=== PATIENT | female | born 1960 | race Two or more races ===

== ENCOUNTER 2019-03-29 11:56 | Emergency (ER) | payer OTHER ==
[~2019-03-29] VITALS: Ht 162.6 cm; Wt 69.9 kg
--- NOTE | 2019-03-29 12:08 | NUR ---
PT CAME IN FOR COUGH AND CONGESTION SINCE THANKSGIVING. NO RELIEF W/ MEDS. PT AAOX4, VSS, -SOB, NO ACUTE DISTRESS NOTED. PT CONNECTED TO THE MONITOR AND POX.
--- NOTE | 2019-03-29 12:48 | NUR ---
XRAY AT BEDSIDE
--- NOTE | 2019-03-29 13:40 | NUR ---
Patient discharged to home in stable condition. Written and verbal after care instructions given. Patient verbalizes understanding of instruction.
--- NOTE | 2019-03-29 14:02 | NUR ---
UNABLE TO DEPART
[2019-03-29 14:30] VITALS: BP 127/84
== END 2019-03-29 14:30 | disposition home or self-care (01) ==
LOC: ER 12:06
DX: J20.9 Acute bronchitis, unspecified (principal)
CPT/HCPCS: 71045-TC

== ENCOUNTER 2019-05-06 14:42 | Emergency (ER) | payer OTHER ==
[~2019-05-06] VITALS: Ht 162.6 cm; Wt 70.3 kg
--- NOTE | 2019-05-06 15:00 | NUR ---
c/o left rib pain since yesterday 12/09 ps, denies trauma/injury. Patient a/ox4, breathing even and unlabored, no sob noted, kept comfortable, will continue to monitor.
[2019-05-06] MEDS ORDERED: predniSONE 20 MG TABLET PO ONE (15:30)
[2019-05-06] MEDS ORDERED: ALBUTEROL FS 2.5 MG/3 ML VIAL.NEB NEB ONE (15:30)
[2019-05-06] MEDS ORDERED: IPRATROPIUM NEB FS 0.5 MG/2.5 ML AMPUL.NEB NEB ONE (15:30)
[2019-05-06] MEDS ORDERED: predniSONE 20 MG TABLET ONE (15:46)
[2019-05-06] MEDS ORDERED: IPRATROPIUM NEB FS 0.5 MG/2.5 ML AMPUL.NEB ONE (15:54)
[2019-05-06] MEDS ORDERED: ALBUTEROL FS 2.5 MG/3 ML VIAL.NEB ONE (15:54)
--- NOTE | 2019-05-06 16:00 | NUR ---
patient still on breathing treatment.
--- NOTE | 2019-05-06 16:46 | NUR ---
PATIENT FEELS BETTER, BREATHING EVEN AND UNLABORED, Patient discharged to home in stable condition. Written and verbal after care instructions given. Patient verbalizes understanding of instruction.
[2019-05-06 16:47] VITALS: BP 132/84
== END 2019-05-06 16:47 | disposition home or self-care (01) ==
LOC: ER 14:45
DX: J20.9 Acute bronchitis, unspecified (principal); R07.81 Pleurodynia
CPT/HCPCS: 71045; 94640; 99283; J7512

== ENCOUNTER 2022-05-17 15:24 | Emergency (ER) | payer OTHER ==
[~2022-05-17] VITALS: Ht 162.6 cm; Wt 72.6 kg
[2022-05-17] MEDS ORDERED: BENZONATATE 100 MG CAPSULE PO PRN (16:30)
[2022-05-17] MEDS ORDERED: LIDOCAINE VISCOUS 2% UD 15 ML UDC MM ONE (16:30)
[2022-05-17] MEDS ORDERED: BENZONATATE 100 MG CAPSULE PO ONE (16:46)
[2022-05-17] MEDS ORDERED: LIDOCAINE VISCOUS 2% UD 15 ML UDC ONE (16:46)
--- NOTE | 2022-05-17 17:11 | NUR ---
STREP, COVID AND INFLUENZA SWAB TAKEN AND SENT TO LAB
[2022-05-17] MEDS ORDERED: BENZ-13 PO (18:55)
[2022-05-17 19:02] VITALS: BP 137/68
== END 2022-05-17 19:02 | disposition home or self-care (01) ==
LOC: ER 15:34
DX: B34.9 Viral infection, unspecified (principal); Z20.822 Contact with and (suspected) exposure to COVID-19; Z90.10 Acquired absence of unspecified breast and nipple; C50.919 Malignant neoplasm of unspecified site of unspecified female breast; Z79.899 Other long term (current) drug therapy
CPT/HCPCS: 99283; 87426; 87804 ×2; 87880; C9803; 86403-TC